=== PATIENT | male | born 1930 | race Caucasian/White ===

== ENCOUNTER 2017-01-17 10:58 | Observation (INO) | payer MEDICARE, BC ==
[2017-01-17] MEDS ORDERED: NovoLOG Insulin SQ PRN (11:31)
[2017-01-17] MEDS ORDERED: TYLENOL 325 MG PO PRN (11:32)
[2017-01-17 11:55] LABS: BASOPHIL % 0.3 % (0.0-0.4); Eosinophil % 1.5 % (0.00-5.0); Granulocytes % 53.9 % (36.0-66.0); Lymphocytes % 34.6 % (24.0-44.0); Mean Corpuscular Hemoglobin 30.6 pg (26-32); Monocytes % 9.7 % (0.0-12.0); Platelet Count 177 K/mm3 (150-450); Red Blood Count 4.32 M/mm3 (4.1-5.6); Red Cell Distribution Width 13.1 % (11.5-14.0); White Blood Count 6.7 K/mm3 (4.0-10.5)
[2017-01-17 12:10] LABS: ANION GAP 14.2 MEQ/L (5-15); BLOOD UREA NITROGEN 18 mg/dL (9-20); CHLORIDE 107 mEq/L (98-107); Carbon Dioxide 26.8 mEq/L (21-32); Glucose 198 MG/DL (70-110); Potassium 3.8 mEq/L (3.5-5.1); SODIUM 144 mEq/L (136-145)
[2017-01-17] MEDS: Zofran 4 MG/2 ML VIAL IV SCH ×2 (12:49→18:09)
[2017-01-18] MEDS ORDERED: Golytely Solution 4000 ML PO ONE (00:01)
[2017-01-18] MEDS: Zofran 4 MG/2 ML VIAL IV SCH ×5 (03:52→23:18)
[2017-01-18] MEDS ORDERED: Sodium Chloride 0.9% 1000 ML 1,000 ML IV SCH (06:30)
[2017-01-18] MEDS ORDERED: Lactated Ringers 1,000 ML IV SCH (06:30)
[2017-01-18] MEDS ORDERED: VERSED 5 MG/5 ML IV ONE ×2 (08:00)
[2017-01-18] MEDS ORDERED: DEMEROL 50 MG IJ ONE (08:00)
[2017-01-18] MEDS ORDERED: MORPHINE SULFATE 10 MG/ML IV ONE (08:00)
--- NOTE | 2017-01-18 10:09 | HP ---
HISTORY OF PRESENT ILLNESS: This is an 86 year-old patient of Dr. Ramesh Gilliam who presented to the clinic complaining of bright red blood on his toilet paper when he wiped. It started on 01/15/2017. He reports that his underwear were also spotted with bright red blood. He reports having some diarrhea at times and then having dark stools at other times when he has the diarrhea but reports that when has a normal bowel movement there is no black in the stool. He reports that he has been taking Pepto-Bismol when he has loose stools and this helps with that. He attributes some of his diarrhea to taking the Metformin 2 gm a day. He reports history of hemorrhoid problems in the past. He has had a colonoscopy but he is unsure of when. The hospital records go back seven years and we cannot find documentation of that. The patient was agreeable to observation in the hospital for consultation with the surgeon for possible colonoscopy to assess the reason for hematochezia. On physical exam in the office that day he had bright red blood with some clots when a rectal exam was done and I did not find any hemorrhoids internal or external or see any external hemorrhoids. His prostate was markedly enlarged on exam without nodules. REVIEW OF SYSTEMS: The patient denies any shortness of breath or chest pain. No dizziness. No nausea or vomiting. He reports he had quite a bit of blood in the stool since taking the prep here at the hospital. No swelling of his lower extremities. PAST MEDICAL HISTORY: Diabetes mellitus type 2. He reports a history of kidney stones. PAST SURGICAL HISTORY: Left hip surgery. MEDICATIONS: Metformin 500 mg tablet 2 tablets twice a day. ALLERGIES: NKDA. SOCIAL HISTORY: He is and lives with his . No tobacco or alcohol use. FAMILY HISTORY: Noncontributory. PHYSICAL EXAMINATION: VITAL SIGNS: Temperature current 97.6F, temperature max 98.2F, heart rate 69 to 99, respiratory rate 16 to 24, blood pressure 144 to 185 over 77 to 95. Oxygen saturation 92 to 97% on room air. GENERAL: The patient is sitting up, a pleasant talkative man in no acute distress. CVS: He has a regular rate and rhythm. No murmurs, gallops or rubs are appreciated. CHEST: Clear to auscultation bilaterally. No crackles or wheezes. ABDOMEN: Soft, nontender, nondistended with normal bowel sounds. RECTAL: Exam was deferred as I just did this yesterday in the clinic and results as stated in history of present illness. EXTREMITIES: No clubbing, cyanosis or edema. LABORATORY DATA AND TESTS: Hemoglobin was 13.2, hematocrit low at 40.6. Glucose 198. ASSESSMENT AND PLAN: 1) HEMATOCHEZIA. He has been seen by Dr. Soler and they are planning on doing a colonoscopy later today to assess for reasons for the bright red blood. 2) DIABETES MELLITUS TYPE 2. I continued him on the Metformin. 3) HIGH BLOOD PRESSURE. He reports his blood pressure is normally normal at home and he reports some anxiety from being here in the hospital.
[2017-01-18] MEDS: Glucophage 500 MG PO SCH (18:32)
[2017-01-19] MEDS: Zofran 4 MG/2 ML VIAL IV SCH (06:33)
[2017-01-19 07:28] VITALS: BP 155/83; PULSE 76; O2SAT 97
[2017-01-19] MEDS: Glucophage 500 MG PO SCH (07:56)
--- NOTE | 2017-01-19 11:05 | OP ---
SURGERY DATE/TIME: 01/18/2017 1555 PREOPERATIVE DIAGNOSIS: Rectal bleeding. POSTOPERATIVE DIAGNOSES: 1) Rectal bleeding secondary to internal and external hemorrhoids. No active bleeding currently. 2) Cecal polyp. 3) Diverticulosis. 4) Tortuous colon. 5) Poor right colon prep limiting the exam. PROCEDURES: Colonoscopy to cecum with hot biopsy polypectomy small cecal polyp. SURGEON: Dr. Boy Soler. ANESTHESIA: IV sedation IV Demerol and Versed. IV morphine and Versed. ESTIMATED BLOOD LOSS: Minimal. INDICATIONS: As noted above. Risks and benefits explained in detail but not limited to and consent obtained. DESCRIPTION OF PROCEDURE AND FINDINGS: The patient is taken to the operating room. Anesthesia was not immediately available. The patient agreed to proceed under IV sedation. He did not have any further questions. After official time out, he was incrementally sedated with IV Demerol 15 and Versed 2 initially and then slowly and carefully titrated additional Versed. As he was reacting with minimal pressure on the scope he was slowly titrated with additional IV morphine and Versed. He remained hemodynamically stable. The scope was slowly and carefully passed up. He did have some internal and external hemorrhoids. He was seen to have some bleeding from these. The scope was carefully passed up through the rectum. He had some diverticulosis. The scope was slowly and carefully passed up through the sigmoid, descending, transverse colon. With external pressure and positioning on his back and two different personnel creating pressure on the abdomen the scope was finally able to be passed around to the cecum. The valve and appendiceal orifice were well visualized. There was a small polyp 2 to 3 mm in the cecum that was removed with hot biopsy polypectomy. Good hemostasis noted. Elevating well away from the bowel wall with very brief bursts of cautery. The scope slowly and carefully withdrawn. Again there was liquidy semisolid stool in the right colon, a few small stool balls limiting the exam for small lesions. Otherwise there are no signs of any large polyps, masses or obstructing lesions on slow careful withdrawal of the scope over the next 12 to 15 minutes slowly and carefully. He did have some diverticulosis in the rectum. On retroflex he did have irritated internal hemorrhoid and on pulling the scope through the anal canal there appeared to be a clot over the top of this sigmoid area. There is no active bleeding currently. The patient was too tense to consider banding as anesthesia was not available at this moment to relax him further. As it was not bleeding it was felt to continue conservative management if he fails to improve shelter, or has recurrent bleeding episodes could then decide to proceed with consideration of banding or consideration of excisional therapy down the road. Again, no active bleeding. There had been no evidence of any old or fresh blood throughout the remainder of the colon. The patient's hemoglobin had been stable at 13. It was felt that he should continue on Metamucil, FiberCon and high fiber diet to titrate soft bulky bowel movements. Sitz baths as needed. Preparation H as needed. Otherwise avoid any aspirin, nonsteroidals or any other thinners. Once the patient is released have him follow up in the office next week to go over the path results. If he continues to have recurrent bleeding could then decide whether to do any other hemorrhoid banding or other hemorrhoid intervention under anesthesia when anesthesia is available.
--- NOTE | 2017-01-20 08:42 | DS ---
DISCHARGE DIAGNOSES: 1) HEMATOCHEZIA. 2) DIABETES MELLITUS TYPE 2. 3) HIGH BLOOD PRESSURE. DISCHARGE PHYSICAL EXAMINATION: VITALS: Temperature current 98.1F, temperature max 98.1F, heart rate 64 to 80, respiratory rate 16 to 20, blood pressure 132 to 155 over 64 to 83. Oxygen saturation 94 to 97% on room air. GENERAL: The patient was sitting up eating breakfast in no acute distress. CVS: He had a regular rate and rhythm. No murmurs, gallops or rubs were appreciated. CHEST: Clear to auscultation bilaterally. No crackles or wheezes. ABDOMEN: Soft, nontender, nondistended with normal bowel sounds. EXTREMITIES: No clubbing, cyanosis or edema. SKIN: Warm, dry and intact. HOSPITAL COURSE: 1) HEMATOCHEZIA: He had a colonoscopy done with Dr. Soler on 01/18/2017 that revealed internal and external hemorrhoids, cecal polyp and diverticulosis. The cause of the hematochezia was thought to be the hemorrhoids. They did not see any active bleeding when they did the colonoscopy. Dr. Soler advised that to have the hemorrhoids treated that he would need to be seen as an outpatient so the patient was discharged to home in stable condition to resume his home medications. 2) DIABETES MELLITUS TYPE 2: This was well controlled during his hospitalization with his oral Metformin. 3) HIGH BLOOD PRESSURE: The patient had a normal blood pressure in the clinic before being admitted to the hospital. He reports he had some anxiety when he was in the hospital and thinks this is why his blood pressure is high so will follow up with this as an outpatient. 4) INTERNAL AND EXTERNAL HEMORRHIOIDS. DISCHARGE MEDICATIONS: He may resume all of his home medications. FOLLOW UP: Follow up with Dr. Ramesh Turk in one to two weeks and Dr. Soler as scheduled.
== END 2017-01-19 10:15 | disposition home or self-care (01) ==
LOC: MED SURG 11:12
PROVIDERS: ADMIT Internal Medicine; ATTEND Internal Medicine
PROC: 0DBH8ZX Excision of Cecum, Via Natural or Artificial Opening Endoscopic, Diagnostic (ICD-10-PCS; principal; 2017-01-18)
DX: K92.1 Melena (principal); E11.9 Type 2 diabetes mellitus without complications; Z79.4 Long term (current) use of insulin; R03.0 Elevated blood-pressure reading, without diagnosis of hypertension; K64.4 Residual hemorrhoidal skin tags; K64.8 Other hemorrhoids; Z87.442 Personal history of urinary calculi; K62.5 Hemorrhage of anus and rectum; D12.0 Benign neoplasm of cecum; K57.90 Diverticulosis of intestine, part unspecified, without perforation or abscess without bleeding
CPT/HCPCS: 36415; 80048; 82962; 85025; 88305; G0378; J2175; J2250; J2270; J2405; A9270-GY

== ENCOUNTER 2018-07-16 05:39 | Emergency (ER) | payer MEDICARE, BC ==
[2018-07-16] MEDS ORDERED: MORPHINE SULFATE 4 MG INJ IV ONE (06:11)
[2018-07-16] MEDS ORDERED: Zofran 4 MG/2 ML VIAL IV ONE (06:11)
--- NOTE | 2018-07-16 06:11 | ERPHSYRPT ---
- History of Present Illness Historian: patient, family Exam Limitations: no limitations Patient Subjective Stated Complaint: pt is alert and oriented. pt is ambulatory with a steady gait. pt comes in with complain of right flank pain. pt states his "urine has gotten real dark all the sudden" and that the pain feels similar to what he had 4 years ago when he had a kidney stone. pt states that the pain started about an hour ago and was rating at an 8 or 9 but has eased up the last 10 minutes and is now a 5. pt tender on the right side upon palpation. pt states he's been urinating more frequently. bowel sounds present. Triage Nursing Assessment: see above Timing/Duration: today Activities at Onset: none Quality: sharpness, stabbing Abdominal Pain Onset Location: flank Pain Radiation: flank Severity of Pain-Max: severe Severity of Pain-Current: moderate Modifying Factors: Improves With: nothing Associated Symptoms: back Previous symptoms: same symptoms as today Hx Tetanus, Diphtheria Vaccination/Date Given: No Hx Influenza Vaccination/Date Given: No Hx Pneumococcal Vaccination/Date Given: No Immunizations Up to Date: Yes <JEANINE GONG - Last Filed: 07/16/18 07:06> <BERTA BUTCHER - Last Filed: 07/16/18 08:30> - History of Present Illness Time Seen by Provider: 07/16/18 06:07 Physician History: pt has remote hx of kidney stone - no fever, no N/V but pain was similar to previous - no hx trauma abd is nontender (JEANINE GONG) Allergies/Adverse Reactions: No Known Drug Allergies Allergy (Verified 01/17/17 11:36) Home Medications: Metformin HCl 500 mg [Glucophage 500 MG] 1,000 mg PO BID 06/19/14 [History ] - Review of Systems Constitutional: No Fever, No Chills Eyes: No Symptoms Ears, Nose, & Throat: No Symptoms Respiratory: No Cough, No Dyspnea Cardiac: No Chest Pain, No Edema, No Syncope Abdominal/Gastrointestinal: No Abdominal Pain, No Nausea, No Vomiting, No Diarrhea Genitourinary Symptoms: Flank Pain, No Dysuria Musculoskeletal: Back Pain, No Neck Pain Skin: No Rash Neurological: No Dizziness, No Focal Weakness, No Sensory Changes Psychological: No Symptoms Endocrine: No Symptoms Hematologic/Lymphatic: No Symptoms Immunological/Allergic: No Symptoms All Other Systems: Reviewed and Negative <BELTRANJEANINECOLE CASTILLOREY - Last Filed: 07/16/18 07:06> - Past Medical History Pertinent Past Medical History: Yes Neurological History: Peripheral Neuropathy ENT History: No Pertinent History Cardiac History: No Pertinent History Respiratory History: Sleep Apnea Endocrine Medical History: Diabetes Type II Musculoskeletal History: Osteoarthritis, Osteoporosis GI Medical History: Ulcer, Other History: Other Psycho-Social History: No Pertinent History Male Reproductive Disorders: No Pertinent History Other Medical History: "I belch a lot". Frequent Urination. kidney stones. - Past Surgical History Past Surgical History: Yes Neuro Surgical History: No Pertinent History Cardiac: No Pertinent History Respiratory: No Pertinent History Gastrointestinal: No Pertinent History Genitourinary: No Pertinent History Musculoskeletal: Orthopedic Surgery Male Surgical History: No Pertinent History Other Surgical History: HIP SURGERY. colonoscopy - Social History Smoking Status: Never smoker Exposure to second hand smoke: No Drug Use: none Patient Lives Alone: No <GONGJEANINECOLE CASTILLOREY - Last Filed: 07/16/18 07:06> - Physical Exam General Appearance: no apparent distress, alert Eye Exam: PERRL/EOMI, eyes nml inspection Ears, Nose, Throat Exam: normal ENT inspection, pharynx normal, moist mucous membranes Neck Exam: normal inspection, non-tender, supple, full range of motion Respiratory Exam: normal breath sounds, lungs clear, No respiratory distress Cardiovascular Exam: regular rate/rhythm, normal heart sounds Gastrointestinal/Abdomen Exam: soft, No tenderness, No mass Rectal Exam: deferred Back Exam: normal inspection, normal range of motion, No CVA tenderness, No vertebral tenderness, No point tenderness Extremity Exam: normal inspection, normal range of motion, pelvis stable Neurologic Exam: alert, oriented x 3, cooperative, normal mood/affect, nml cerebellar function, sensation nml, No motor deficits Skin Exam: normal color, warm, dry SpO2: 96 <BELTRANJEANINECOLE NESS - Last Filed: 07/16/18 07:06> - Nursing Vital Signs Nursing Vital Signs: Initial Vital Signs Temperature 97.7 F 07/16/18 05:47 Pulse Rate 84 07/16/18 05:47 Respiratory Rate 18 07/16/18 05:47 Blood Pressure 182/89 07/16/18 05:47 O2 Sat by Pulse Oximetry 96 07/16/18 05:47 Pain Scale Pain Intensity 8 - Course Nursing assessment & vital signs reviewed: Yes EKG Interpreted by Me: Sinus Rhythm, NORMAL AXIS, LAFB, NORMAL INTERVALS, Non- specific ST Changes <JEANINE GONG - Last Filed: 07/16/18 07:06> - CT Exams Abdomen/Pelvis CT Interpretation: Tele-radiologist Report (CT abdomen and pelvis: Impression 1. Right hydronephrosis, 2 mm calculus in the distal right ureter, as well as 5 mm calculus and 3 mm calculus at right UVJ. 2. 5 mm calculus at left UVJ 3. Nonobstructing bilateral nephrolithiasis.) <BERTA BUTCHER - Last Filed: 07/16/18 08:30> Ordered Tests: Active Orders 24 hr Category Date Time Status Clean Catch Urine Specimen STAT Care 07/16/18 06:11 Active EKG-ER Only STAT Care 07/16/18 06:11 Active IV Insertion STAT Care 07/16/18 06:11 Active NPO (ED) STAT Care 07/16/18 06:11 Active ABDOMEN AND PELVIS W/0 CONTRAS [CT] Stat Exams 07/16/18 06:11 Taken AMYLASE Stat Lab 07/16/18 06:25 Completed CBC W DIFF Stat Lab 07/16/18 06:25 Completed CMP Stat Lab 07/16/18 06:25 Completed CULTURE,URINE Stat Lab 07/16/18 07:35 Received LIPASE Stat Lab 07/16/18 06:25 Completed Lactic Acid Stat Lab 07/16/18 06:11 Results TROPONIN Q3H Lab 07/16/18 06:25 Completed TROPONIN Q3H Lab 07/16/18 09:15 Ordered TROPONIN Q3H Lab 07/16/18 12:15 Ordered TROPONIN Q3H Lab 07/16/18 15:15 Ordered TROPONIN Q3H Lab 07/16/18 18:15 Ordered UA W/RFX UR CULTURE Stat Lab 07/16/18 07:35 Completed Medication Summary Generic Name Dose Route Start Last Admin Trade Name Freq PRN Reason Stop Dose Admin Sodium Chloride 1,000 mls @ 50 mls/hr 07/16/18 06:15 07/16/18 06:19 Sodium Chloride 0.9% 1000 Ml IV 08/15/18 06:14 50 mls/hr .Q20H CINDY Administration Discontinued Medications Generic Name Dose Route Start Last Admin Trade Name Freq PRN Reason Stop Dose Admin Morphine Sulfate 4 mg 07/16/18 06:11 07/16/18 06:18 Morphine Sulfate 4 Mg Inj IV 07/16/18 06:12 4 mg STAT ONE Administration Morphine Sulfate Confirm 07/16/18 06:16 Morphine Sulfate 4 Mg Inj Administered 07/16/18 06:17 Dose 4 mg .ROUTE .STK-MED ONE Morphine Sulfate 2 mg 07/16/18 08:11 07/16/18 08:18 Morphine Sulfate 2 Mg Inj IV 07/16/18 08:12 2 mg STAT ONE Administration Morphine Sulfate Confirm 07/16/18 08:15 Morphine Sulfate 2 Mg Inj Administered 07/16/18 08:16 Dose 2 mg .ROUTE .STK-MED ONE Ondansetron HCl 4 mg 07/16/18 06:11 07/16/18 06:18 Zofran 4 Mg/2 Ml Vial IV 07/16/18 06:12 4 mg STAT ONE Administration Ondansetron HCl Confirm 07/16/18 06:16 Zofran 4 Mg/2 Ml Vial Administered 07/16/18 06:17 Dose 4 mg .ROUTE .STK-MED ONE Lab/Rad Data: Laboratory Result Diagrams 07/16/18 06:25 07/16/18 06:25 Laboratory Results 07/16/18 07/16/18 07/16/18 Range/Units 07:35 06:25 06:25 WBC (4.0-10.5) K/mm3 RBC (4.1-5.6) M/mm3 Hgb (12.5-18.0) gm/dl Hct (42-50) % MCV (78-100) fl MCH (26-32) pg MCHC (32-36) g/dl RDW (11.5-14.0) % Plt Count (150-450) K/mm3 MPV (6-9.5) fl Gran % (36.0-66.0) % Eos # (Auto) (0-0.5) Absolute Lymphs (auto) (1.0-4.6) Absolute Monos (auto) (0.0-1.3) Lymphocytes % (24.0-44.0) % Monocytes % (0.0-12.0) % Eosinophils % (0.00-5.0) % Basophils % (0.0-0.4) % Absolute Granulocytes (1.4-6.9) Basophils # (0-0.4) Sodium 142 (137-145) mmol/L Potassium 4.4 (3.5-5.1) mmol/L Chloride 105 (98-107) mmol/L Carbon Dioxide 26 (22-30) mmol/L Anion Gap 15.5 H (5-15) MEQ/L BUN 27 H (9-20) mg/dL Creatinine 0.97 (0.66-1.25) mg/dL Estimated GFR > 60.0 ML/MIN Glucose 161 H (74-106) mg/dL Lactic Acid (0.4-2.0) Calcium 9.7 (8.4-10.2) mg/dL Total Bilirubin 1.10 (0.2-1.3) mg/dL AST 23 (17-59) U/L ALT 17 (0-50) U/L Alkaline Phosphatase 62 (38-126) U/L Troponin I < 0.012 (0.000-0.034) ng/mL Serum Total Protein 8.0 (6.3-8.2) g/dL Albumin 4.6 (3.5-5.0) g/dL Amylase 69 (30-110) U/L Lipase 115 (23-300) U/L Urine Color YELLOW (YELLOW) Urine Appearance CLOUDY (CLEAR) Urine pH 5.0 (5-6) Ur Specific Vader 1.018 (1.005-1.025) Urine Protein 30 (Negative) Urine Ketones TRACE (NEGATIVE) Urine Blood LARGE (0-5) Irvin/ul Urine Nitrite NEGATIVE (NEGATIVE) Urine Bilirubin NEGATIVE (NEGATIVE) Urine Urobilinogen NEGATIVE (0-1) mg/dL Ur Leukocyte Esterase NEGATIVE (NEGATIVE) Urine WBC (Auto) 3-5 (0-5) /HPF Urine RBC (Auto) >101 (0-2) /HPF U Hyaline Cast (Auto) 3-5 (0-2) /LPF U Epithel Cells (Auto) NONE (FEW) /HPF Urine Bacteria (Auto) RARE (NEGATIVE) /HPF Urine Mucus (Auto) SLIGHT (NEGATIVE) /HPF Urine Culture Reflexed YES (NO) Urine Glucose NEGATIVE (NEGATIVE) mg/dL 07/16/18 07/16/18 Range/Units 06:25 06:11 WBC 9.8 (4.0-10.5) K/mm3 RBC 4.35 (4.1-5.6) M/mm3 Hgb 13.2 (12.5-18.0) gm/dl Hct 41.2 L (42-50) % MCV 94.7 (78-100) fl MCH 30.3 (26-32) pg MCHC 32.0 (32-36) g/dl RDW 12.8 (11.5-14.0) % Plt Count 202 (150-450) K/mm3 MPV 11.2 H (6-9.5) fl Gran % 47.3 (36.0-66.0) % Eos # (Auto) 0.20 (0-0.5) Absolute Lymphs (auto) 4.01 (1.0-4.6) Absolute Monos (auto) 0.91 (0.0-1.3) Lymphocytes % 41.1 (24.0-44.0) % Monocytes % 9.3 (0.0-12.0) % Eosinophils % 2.1 (0.00-5.0) % Basophils % 0.2 (0.0-0.4) % Absolute Granulocytes 4.61 (1.4-6.9) Basophils # 0.02 (0-0.4) Sodium (137-145) mmol/L Potassium (3.5-5.1) mmol/L Chloride (98-107) mmol/L Carbon Dioxide (22-30) mmol/L Anion Gap (5-15) MEQ/L BUN (9-20) mg/dL Creatinine (0.66-1.25) mg/dL Estimated GFR ML/MIN Glucose (74-106) mg/dL Lactic Acid 2.2 H (0.4-2.0) Calcium (8.4-10.2) mg/dL Total Bilirubin (0.2-1.3) mg/dL AST (17-59) U/L ALT (0-50) U/L Alkaline Phosphatase (38-126) U/L Troponin I (0.000-0.034) ng/mL Serum Total Protein (6.3-8.2) g/dL Albumin (3.5-5.0) g/dL Amylase (30-110) U/L Lipase (23-300) U/L Urine Color (YELLOW) Urine Appearance (CLEAR) Urine pH (5-6) Ur Specific Vader (1.005-1.025) Urine Protein (Negative) Urine Ketones (NEGATIVE) Urine Blood (0-5) Irvin/ul Urine Nitrite (NEGATIVE) Urine Bilirubin (NEGATIVE) Urine Urobilinogen (0-1) mg/dL Ur Leukocyte Esterase (NEGATIVE) Urine WBC (Auto) (0-5) /HPF Urine RBC (Auto) (0-2) /HPF U Hyaline Cast (Auto) (0-2) /LPF U Epithel Cells (Auto) (FEW) /HPF Urine Bacteria (Auto) (NEGATIVE) /HPF Urine Mucus (Auto) (NEGATIVE) /HPF Urine Culture Reflexed (NO) Urine Glucose (NEGATIVE) mg/dL - Progress Progress: improved, re-examined Counseled pt/family regarding: lab results, diagnosis, need for follow-up, rad results <JEANINE GONG - Last Filed: 07/16/18 07:06> <BERTA BUTCHER - Last Filed: 07/16/18 08:30> - Progress Progress Note: 07/16/18 06:[address] Buthcer at change of shift including pending tests and turned over to him for final interpretation of tests, Tx , and disposition.; pt also advised. (JEANINE GONG) 07/16/18 08:24 This is a 88-year-old white male with history of peripheral neuropathy, sleep apnea, diabetes type 2, osteoarthritis, osteoporosis, ulcers, kidney stones. He arrives with complaint of pain in the right flank which occurred at approximately 4:00 this morning. He denies nausea or vomiting Patient has been begun on IV normal saline as well as given IV morphine by Dr. Vann. He continues to have pain in his right flank. On physical examination patient is alert oriented 3 pleasant and cooperative to examination. HEENT within normal limits neck is supple lungs are clear heart regular rate and rhythm without murmur abdomen soft nontender nondistended positive bowel sounds back right flank tenderness extremities full range was pulsatile symmetrical 2 over 4. Neuro cranial nerves II through XII are intact DTRs symmetrical 24 Oni Coma Scale 15. Patient has a CT which is remarkable for right hydronephrosis there is a 2 mm calculus in the distal right ureter also a 5 mm calculus in a 3 mm calculus of the right UVJ. 2. There is a 5 mm calculus in the left UVJ 3. Nonobstructing bilateral nephrolithiasis. 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 Patient's labs CBC White blood cell 9.8 hemoglobin 13.2 hematocrit 41.2 platelets 202 Chemistry sodium 142 potassium 4.4 chloride 105 bicarbonate 26 BUN 27 creatinine 0.97 glucose 161 Troponin is less than 0.012 Lactate is 2.2 Urinalysis greater than greater than 101 red blood cells per high-power field 3- 5 white cells trace of ketones 3+ protein specific gravity 1.018 pH 5.0. Patient's vitals are stable. Impression right flank pain to right hydronephrosis 3 bilateral urolithiasis. Plan patient is already been begun on IV normal saline I've asked the nurses go ahead and turn this up patient has been given 2 mg of additional morphine IV will administer this and 2 mm increments until pain appears to be controlled. I've contacted Dr. Leonard at [facility] Patient has seen Dr. Jean AN Dr. Zavala for his kidney problems in the distant past. Bleed with patient with continuing right flank pain as well as right hydronephrosis and bilateral urolithiasis the patient requires continued IV fluids and renal consult and possible definitive treatment. Dr. Leonard has excepted the patient for transfer Will go ahead and transfer to [facility] emergency room (BERTA BUTCHER) <JEANINE GONG - Last Filed: 07/16/18 07:06> - Departure Time of Disposition: 08:29 Departure Disposition: Transfer ([facility]) Critical Care Time: No <BERTA BUTCHER - Last Filed: 07/16/18 08:30> - Departure Clinical Impression: Right flank pain, Hydronephrosis, right, bilateral urolithiasis Condition: Fair Referrals: MARIBELL BOWENS [Primary Care Provider] -
[2018-07-16] MEDS ORDERED: Sodium Chloride 0.9% 1000 ML 1,000 ML IV SCH (06:15)
[2018-07-16] MEDS ORDERED: MORPHINE SULFATE 4 MG INJ ONE (06:16)
[2018-07-16] MEDS ORDERED: Sodium Chloride 0.9% 1000 ML 1,000 ML ONE (06:16)
[2018-07-16] MEDS ORDERED: Zofran 4 MG/2 ML VIAL ONE (06:16)
[2018-07-16 06:29] LABS: BASOPHIL % 0.2 % (0.0-0.4); Basophil (Absolute #) 0.02 (0-0.4); Eosinophil % 2.1 % (0.00-5.0); Granulocyte Absolute (ANC) 4.61 (1.4-6.9); Granulocytes % 47.3 % (36.0-66.0); Hematocrit 41.2 % (42-50); Hemoglobin 13.2 gm/dl (12.5-18.0); Lymphocyte (Absolute #) 4.01 (1.0-4.6); Lymphocytes % 41.1 % (24.0-44.0); Mean Cell Volume 94.7 fl (78-100); Mean Corpuscular Hemoglobin 30.3 pg (26-32); Mean Platelet Volume 11.2 fl (6-9.5); Monocyte (Absolute #) 0.91 (0.0-1.3); Monocytes % 9.3 % (0.0-12.0); Platelet Count 202 K/mm3 (150-450); Red Blood Count 4.35 M/mm3 (4.1-5.6); Red Cell Distribution Width 12.8 % (11.5-14.0); White Blood Count 9.8 K/mm3 (4.0-10.5)
[2018-07-16 06:31] LABS: Lactic Acid 2.2 (0.4-2.0)
[2018-07-16 06:46] LABS: ALBUMIN 4.6 g/dL (3.5-5.0); ALKALINE PHOSPHATASE 62 U/L (38-126); AMYLASE 69 U/L (30-110); ANION GAP 15.5 MEQ/L (5-15); BLOOD UREA NITROGEN 27 mg/dL (9-20); CHLORIDE 105 mmol/L (98-107); Calcium 9.7 mg/dL (8.4-10.2); Carbon Dioxide 26 mmol/L (22-30); Creatinine 1 0.97 mg/dL (0.66-1.25); Glucose 161 mg/dL (74-106); LIPASE 115 U/L (23-300); Potassium 4.4 mmol/L (3.5-5.1); SGOT/AST 23 U/L (17-59); SGPT/ALT 17 U/L (0-50); SODIUM 142 mmol/L (137-145)
[2018-07-16 07:49] LABS: Appearance CLOUDY (CLEAR); Bacteria RARE /HPF (NEGATIVE); Bilirubin NEGATIVE (NEGATIVE); Blood LARGE Ery/ul (0-5); Glucose NEGATIVE (NEGATIVE); Ketones TRACE (NEGATIVE); Leukocyte Esterase NEGATIVE (NEGATIVE); Mucus SLIGHT /HPF (NEGATIVE); Nitrite NEGATIVE (NEGATIVE); Protein,Urine Dip 30 (Negative); RBC >101 /HPF (0-2); Specific Gravity 1.018 (1.005-1.025); Urobilinogen NEGATIVE mg/dL (0-1)
[2018-07-16] MEDS ORDERED: MORPHINE SULFATE 2 MG INJ IV ONE (08:11)
[2018-07-16] MEDS ORDERED: MORPHINE SULFATE 2 MG INJ ONE (08:15)
--- NOTE | 2018-07-16 08:50 | XRAY ---
Indication: Right flank pain. Dark urine. History renal stone. Multiple contiguous axial images obtained through the abdomen and pelvis without contrast as ordered. Comparison: None Lung bases demonstrates mild bibasilar atelectasis/scarring and tiny left lower lobe calcified granuloma. No infiltrate or effusion. Heart is not enlarged. Noncontrasted stomach and bowel loops appear nonobstructed. Normal appendix. No free fluid/air. Distal right UVJ demonstrates at least 3 micro-calculi, largest 7 mm. Proximal right ureter is slightly prominent along with mild hydronephrosis consistent with partial obstructive uropathy. There is also a 5 mm distal left ureter calculus just proximal to the UVJ without hydronephrosis or hydroureter. Additional bilateral renal micro-calculi and 3 cm right upper pole exophytic cyst. Incidental enlarged prostate gland with chunky calcifications impresses on the base of the bladder. Remaining liver, gallbladder, pancreas, spleen, adrenal glands, kidneys, left ureter, and bladder appear unremarkable for noncontrast exam. Mild scattered aortoiliac calcifications without AAA. 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 Osseous structures intact with moderate degenerative changes throughout the lumbar spine. Mild degenerative changes of both hips and partially visualized proximal left femur orthopedic hardware. Small fatty bilateral inguinal hernias. Impression: 1. Distal right UVJ micro-calculi producing partial obstruction and not obstructing distal left ureter micro-calculus. Additional bilateral renal micro-calculi and incidental exophytic right renal cyst. 2. Enlarged prostate gland with benign chunky calcifications. 3. 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 4. Bilateral fatty inguinal hernias. Comment: Preliminary interpretation was made by [facility]. No critical discrepancy. CTDI 18.78
[2018-07-16 09:10] VITALS: BP 154/80; PULSE 84; O2SAT 95
== END 2018-07-16 09:11 | disposition short-term general hospital (02) ==
LOC: ED 05:39
DX: R10.9 Unspecified abdominal pain (principal); N13.30 Unspecified hydronephrosis; N20.9 Urinary calculus, unspecified; G62.9 Polyneuropathy, unspecified; G47.30 Sleep apnea, unspecified; E11.9 Type 2 diabetes mellitus without complications; M81.0 Age-related osteoporosis without current pathological fracture; Z87.442 Personal history of urinary calculi; Z79.4 Long term (current) use of insulin
CPT/HCPCS: 36000; 36415; 74176; 80053; 81001; 82150; 83605; 83690; 84484; 85025; 87086; 93005; 96360; 96361; 96374; 96375; 96376; 99285; J2270; J2405